=== PATIENT | male | born 1965 | race Caucasian/White ===

== ENCOUNTER → 2017-10-12 14:46 | Outpatient (CLI) | payer OTHER, SELFPAY | PROVIDERS: Visit Provider Psychiatry & Neurology Neurology | DX: Z00.00 Encounter for general adult medical examination without abnormal findings (principal) ==

== ENCOUNTER → 2019-08-31 10:12 | Outpatient (CLI) | payer OTHER, SELFPAY | PROVIDERS: Referring Provider Family Medicine; Visit Provider Family Medicine | DX: Z20.828 Contact with and (suspected) exposure to other viral communicable diseases (principal) | CPT/HCPCS: 87635; G2023; U0004 ==

== ENCOUNTER 2019-12-11 08:48 | Emergency (ER) | payer OTHER, SELFPAY ==
[2019-12-11 08:49] VITALS: BP 132/65; PULSE 66; RESP 15; TEMP 36.2; BMI 27.3
[2019-12-11 08:59] VITALS: O2SAT 97
--- NOTE | 2019-12-11 09:04 | RAD_ITS ---
STUDY: X-RAY - RIGHT HAND, ATTENTION FOURTH FINGER REASON FOR EXAM: Male, 54 years old. Laceration to fourth digit. TECHNIQUE: 3 view(s) of the finger were obtained. COMPARISON: None. FINDINGS: Normal metacarpal head. Normal metacarpophalangeal joint. Normal proximal phalanx. Normal middle phalanx. Normal distal phalanx. Normal proximal interphalangeal joint. Normal distal interphalangeal joint. Soft tissue swelling over the PIP joint. RAD/Finger(s) Min 2 Views IMPRESSION: No demonstrated fracture or suspicious osseous lesion Soft tissue swelling over the PIP joint Electronically Signed: Alfredo Mcneil MD at 9:31 EDT , Service support ,
--- NOTE | 2019-12-11 09:07 | ED.DCSUM_ITS ---
- ER Visit Summary Date of Service: 12/11/19 Chief Complaint: Right ring finger injury History of Present Illness: The patient is a 54 M who presents with an injury to his right ring finger that occurred yesterday. Patient was using a ratchet straps and was trying to release one when it came back and hit him on his right ring finger. Patient cleaned the wound. Patient states that he took ibuprofen last night and his pain improved. Patient states his pain is worse with movement. Patient describes his pain is dull and aching. Patient denies any fevers or chills. Patient denies any paresthesias or weakness. Patient is unsure of his last tetanus. Physical Examination: Vital signs are stable. Patient is afebrile. Patient is in no acute distress. Musculoskeletal exam reveals tenderness over the PIP joint of the right ring finger. There is a 2 cm laceration on the dorsal aspect. There is minimal gapping of the wound margins. There is no active bleeding. Range of motion was slightly limited in flexion of the PIP joint secondary to pain. There is no bony crepitance or step-off. There is no deformity noted. Capillary refill is less than 2 seconds in all digits. Sensation was intact light touch in all digits. Test Results: X-rays of the right ring finger were obtained. There is no acute fracture or foreign body noted. There is some soft tissue swelling. This was interpreted by the radiologist and reviewed by myself. Emergency Department Course and Treatment: Patient was given a tetanus booster. The wound was cleaned and dressed. Patient was given a dose of Keflex here. Patient was given a prescription for Keflex. Patient was instructed to keep the wound clean and dry. Patient was instructed to follow-up with his primary care physician in 5 to 7 days for wound recheck. Patient understood and was agreeable with the plan. All questions were answered. Disposition: Discharge home Impression: Right ring finger laceration This note was generated with [employer] dictation software. It may contain incorrect words, spelling, and punctuation that were not noted in review of the chart prior to signing ED Disposition - Plan for ED Patient: Disposition: Home or Assisted Living Diagnosis: Laceration of right ring finger w/o foreign body w/o damage to nail Instructions: ED Laceration Old Not Sutr Prescriptions: Cephalexin [Keflex] 500 mg PO Q6 #40 cap Prescription Printed Referrals: Care Physician,No Primary [NON-STAFF] - 5-7 Days
[2019-12-11] MEDS: Diphth,Pertuss(Acell),Tet Vac 0.5 ML Vial IM (10:06)
[2019-12-11] MEDS: BACITRACIN 15 GM Tube 1 APPLIC TOPICAL (10:06)
== END 2019-12-11 10:08 | disposition home or self-care (01) ==
PROVIDERS: Emergency Provider Emergency Medicine; PCP Family Medicine
DX: S61.214A Laceration without foreign body of right ring finger without damage to nail, initial encounter (principal); W22.8XXA Striking against or struck by other objects, initial encounter; Y93.89 Activity, other specified; Y92.9 Unspecified place or not applicable
CPT/HCPCS: 73140; 90471; 94760; 99283

== ENCOUNTER → 2020-01-20 | Outpatient (CLI) | payer OTHER, SELFPAY | END | disposition home or self-care (01) | LOC: LABSPEC 01-24 14:35 | PROVIDERS: PCP Family Medicine; Referring Provider Family Medicine; Visit Provider Family Medicine | DX: U07.1 COVID-19 (principal) | CPT/HCPCS: 87635; C9803; U0003 ==

== ENCOUNTER 2020-04-27 08:29 | Day surgery (SDC) | payer SELFPAY, OTHER ==
[2020-04-10 08:07] VITALS: BMI 27.6
[2020-04-27] VITALS (8 sets, daily range): BP systolic 83–106; BP diastolic 47–76; PULSE 54–64; RESP 16–18; TEMP 36.2–36.7; O2SAT 98–100; BMI 26.6
--- NOTE | 2020-04-27 06:56 | HP_ITS ---
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 Zay Jackman MD) Smoking Status: Never smoker HPI HPI HPI: DEVAN SLADE, is a 54 M who presents to the office today for HPI HPI Surgical H&P: Yes HPI: DEVAN SLADE, is a 54 M who presents to the office today for colonoscopy. The patient reports for the past several months he is seen some dark blood in his stool. He also reports that he has been having lower abdominal pain and cramping especially after eating. He denies any upper abdominal pain but he does have gastric reflux. Patient is never had a colonoscopy. He has no family history of colon cancer. ROS General General: Yes weight change and fatigue; no appetite, colon cancer, breast cancer or weakness HEENT HEENT: No difficulty swallowing, eye injury, eye surgery, swollen glands or hoarseness Endo Endocrine: No thyroid disease, diabetes mellitus, thyroid cancer, Hair loss, heat intolerance or cold intolerance Skin Skin: No rash or changing moles Breast Breast: No left breast lump, right breast lump, nipple discharge, breast pain, abnormal mammogram, abnormal US or breast enlargement Musc Musculoskeletal: No back problems, arthritis, rheumatoid arthritis, gout or joint pain Cardio Cardiovascular: No murmur, pacemaker, heart disease, atrial fibrillation, high blood pressure, heart attack, heart stent, palpitations, shortness of breat with exertion or chest pain Psych Psychiatric: No depression, anxiety or hearing voices Resp Respiratory: No shortness of breath, Yes sleep apnea, No cough, No COPD, No asthma, No emphysema, No wheezing Gastro Gastrointestinal: Yes abdominal pain, No nausea or vomiting, No diarrhea, Yes constipation, No blood in stool, Yes acid reflux, No hemorrhoids, No ulcers, No gallbladder problem, No black,tarry stools Additional Details: Possibility of noting a small amount of blood in stool periodically but not entirely sure Lalo Hematologic: No blood thinners, No blood disorders, No bleeding, No anemia, No blood clots Neuro Neurologic: No system reviewed and no additional complaints, except as docu, No as per HPI, No abnormal walking, No abnormal hearing, No abnormal movements, No abnormal speech, No behavioral changes, No burning sensations, No confusion, No seizure-like activity, No unsteadiness, No dizziness, No localized weakness, No frequent falls, No headache(s), No lack of coordination, No loss of vision, No memory loss, No numbness, No other visual disturbances, No radiating pain, No restless legs, No sensory deficit, No fainting, No tingling, No tremor(s), No weakness, No other Exam Const General: cooperative Orientation: alert, oriented x3 Chest Breast Palpation: No nipple discharge Resp Effort & Inspection: normal respiratory effort Auscultation: clear to auscultation bilaterally Cardio Rate: regular rate Rhythm: regular rhythm Heart Sounds: no murmurs GI Inspection: non-distended Palpation: soft, nontender Assessment & Plan Problems 1. Lower abdominal pain R10.30 2. Blood in stool K92.1 Plan The patient has blood in the stool and lower abdominal pain. I recommended colonoscopy. Patient also has history of GERD but no upper abdominal pain. I did start him on a PPI. I explained endoscopy in detail to the patient. I explained the risks including but not limited to stroke or heart attack with anesthesia, perforation of the GI tract, bleeding, infection. I explained that any of these could necessitate further emergency surgery. The patient understands and all questions were answered sufficiently. The patient wishes to proceed with procedure. The patient had Covid 2 months ago. Zay Jackman MD Pager: [facility] [address] [place] [address], [address] [place] [address] Office: Orders Orders: Colonoscopy Today K92.1, R10.30 Medications New: omeprazole 40 mg PO DAILY 60 caps 0RF Coding Level of Care Code Off vis,new,level 3 Diagnoses Lower abdominal pain R10.30 Blood in stool K92.1 I have re-examined the patient. There are no clinical changes since date of exam.
[2020-04-27] MEDS: Lactated Ringers 1,000 ML 100 ML IV ×2 (09:35→10:10)
--- NOTE | 2020-04-27 10:31 | OP.EGD_ITS ---
Patient Name: Garland Cain Procedure Date: 04/27/2020 9:47 AM Date of : 1965 Age: 54 Procedure: Upper GI endoscopy Indications: Recent gastrointestinal bleeding Providers: Zay Jackman MD Referring MD: Herson Whyte Medicines: Monitored Anesthesia Care Patient Profile: This is a 54 year old male. Refer to note in patient chart for documentation of history and physical. Complications: No immediate complications. Procedure: Pre-Anesthesia Assessment: - Prior to the procedure, a History and Physical was performed, and patient medications and allergies were reviewed. The patient's tolerance of previous anesthesia was also reviewed. The risks and benefits of the procedure and the sedation options and risks were discussed with the patient. All questions were answered, and informed consent was obtained. Prior Anticoagulants: The patient has taken no previous anticoagulant or antiplatelet agents. After reviewing the risks and benefits, the patient was deemed in satisfactory condition to undergo the procedure. After obtaining informed consent, the endoscope was passed under direct vision. Throughout the procedure, the patient's blood pressure, pulse, and oxygen saturations were monitored continuously. The gastroscope was introduced through the mouth, and advanced to the second part of duodenum. The upper GI endoscopy was accomplished without difficulty. The patient tolerated the procedure well. Scope In: 9:57:27 AM Scope Out: 9:59:48 AM Total Procedure Duration Time 0 hours 2 minutes 21 seconds Findings: A medium-sized hiatal hernia was present. The esophagus was normal. The examined duodenum was normal. Impression: - Medium-sized hiatal hernia. - Normal esophagus. - Normal examined duodenum. - No specimens collected. Recommendation: - Discharge patient to home. - Resume previous diet. - Continue present medications. Procedure Code(s): --- Professional --- 24888, Esophagogastroduodenoscopy, flexible, transoral; diagnostic, including collection of specimen(s) by brushing or washing, when performed (separate procedure) Diagnosis Code(s): --- Professional --- K44.9, Diaphragmatic hernia without obstruction or gangrene K92.2, Gastrointestinal hemorrhage, unspecified CPT copyright 2017 [employer]. All rights reserved. The codes documented in this report are preliminary and upon histopath tech review may be revised to meet current compliance requirements. Zay Jackman MD 04/27/2020 10:30:55 AM This report has been signed electronically. Number of Addenda: 0 Note Initiated On: 04/27/2020 9:47 AM
--- NOTE | 2020-04-27 10:31 | OP.CCLET_ITS ---
04/27/2020 Hesron Whyte [address] [place] [address] Re : Upper GI endoscopy procedure for Garland Cain Dear Dr. Whyte This procedure was performed on Monday, April 27, 2020. My impressions and recommendations are as follows: Impressions : - Medium-sized hiatal hernia. - Normal esophagus. - Normal examined duodenum. - No specimens collected. Recommendations : - Discharge patient to home. - Resume previous diet. - Continue present medications. My findings are described in the full procedure note, which is enclosed. If I can be of further assistance, please feel free to contact me at Doctor phone number(s): , Work: . Sincerely, Zay Jackman MD 04/27/2020 10:30:55 AM This report has been signed electronically.
--- NOTE | 2020-04-27 10:33 | OP.COLON_ITS ---
Patient Name: Garland Cain Procedure Date: 04/27/2020 10:00 AM Date of : 1965 Age: 54 Procedure: Colonoscopy Indications: Gastrointestinal bleeding Providers: Zay Jcakman MD Referring MD: Herson Whyte Medicines: Monitored Anesthesia Care Patient Profile: This is a 54 year old male. Refer to note in patient chart for documentation of history and physical. Last Colonoscopy: none. The patient's first colonoscopy is today. Complications: No immediate complications. Procedure: Pre-Anesthesia Assessment: - Prior to the procedure, a History and Physical was performed, and patient medications and allergies were reviewed. The patient's tolerance of previous anesthesia was also reviewed. The risks and benefits of the procedure and the sedation options and risks were discussed with the patient. All questions were answered, and informed consent was obtained. Prior Anticoagulants: The patient has taken no previous anticoagulant or antiplatelet agents. After reviewing the risks and benefits, the patient was deemed in satisfactory condition to undergo the procedure. After I obtained informed consent, the scope was passed under direct vision. Throughout the procedure, the patient's blood pressure, pulse, and oxygen saturations were monitored continuously. The colonoscope was introduced through the anus and advanced to the cecum, identified by appendiceal orifice and ileocecal valve. The colonoscopy was performed without difficulty. The patient tolerated the procedure well. The quality of the bowel preparation was good. Scope In: 10:02:12 AM Scope Withdrawal Time 0 hours 6 minutes 25 seconds Scope Out: 10:14:18 AM Total Procedure Duration Time 0 hours 12 minutes 6 seconds Findings: Internal hemorrhoids were found during retroflexion. The hemorrhoids were small. The exam was otherwise without abnormality on direct and retroflexion views. Impression: - Internal hemorrhoids. - The examination was otherwise normal on direct and retroflexion views. - No specimens collected. Recommendation: - Discharge patient to home. - Resume previous diet. - Continue present medications. - Repeat colonoscopy in 10 years for screening purposes. Procedure Code(s): --- Professional --- 08939, Colonoscopy, flexible; diagnostic, including collection of specimen(s) by brushing or washing, when performed (separate procedure) Diagnosis Code(s): --- Professional --- K64.8, Other hemorrhoids K92.2, Gastrointestinal hemorrhage, unspecified CPT copyright 2017 [employer]. All rights reserved. The codes documented in this report are preliminary and upon ammunition specialist review may be revised to meet current compliance requirements. Zay Jackman MD 04/27/2020 10:32:44 AM This report has been signed electronically. Number of Addenda: 0 Note Initiated On: 04/27/2020 10:00 AM
--- NOTE | 2020-04-27 10:33 | OP.CCLET_ITS ---
04/27/2020 Herson Whyte [address] [place] [address] Re : Colonoscopy procedure for Garland Cain Dear Dr. Whyte This procedure was performed on Monday, April 27, 2020. My impressions and recommendations are as follows: Impressions : - Internal hemorrhoids. - The examination was otherwise normal on direct and retroflexion views. - No specimens collected. Recommendations : - Discharge patient to home. - Resume previous diet. - Continue present medications. - Repeat colonoscopy in 10 years for screening purposes. My findings are described in the full procedure note, which is enclosed. If I can be of further assistance, please feel free to contact me at Doctor phone number(s): , Work: . Sincerely, Zay Jackman MD 04/27/2020 10:32:44 AM This report has been signed electronically.
== END 2020-04-27 11:35 | disposition home or self-care (01) ==
LOC: EN 08:32 → AC 08:33
PROVIDERS: PCP Family Medicine; Referring Provider Family Medicine; Visit Provider Surgery
PROC: 0DJD8ZZ Inspection of Lower Intestinal Tract, Via Natural or Artificial Opening Endoscopic (ICD-10-PCS; CPT 45378; principal; 2020-04-27 09:55)
DX: K44.9 Diaphragmatic hernia without obstruction or gangrene (principal); K64.8 Other hemorrhoids; K92.1 Melena; K21.9 Gastro-esophageal reflux disease without esophagitis; E78.5 Hyperlipidemia, unspecified; G47.30 Sleep apnea, unspecified; Z20.822 Contact with and (suspected) exposure to COVID-19; Z79.899 Other long term (current) drug therapy; Z87.891 Personal history of nicotine dependence
CPT/HCPCS: 43235; 45378; 87426; C9803; J7120; J2405

== ENCOUNTER 2021-07-02 07:49 | Outpatient (CLI) | payer OTHER, SELFPAY ==
[2021-07-02 08:36] LABS: Absolute Lymphocyte Count 1.49 X10^3/uL (0.83-4.51); Absolute Neutrophil Count 3.7 X10^3/uL (2.0-7.7); Basophil# 0.03 X10^3/uL; Basophil% 0.5 % (0-1); Eosinophil# 0.15 X10^3/uL; Eosinophils% 2.6 % (0-5); Hemoglobin 16.1 g/dL (13.0-16.5); Lymphocyte # 1.49 X10^3/ul (0.83-4.51); Lymphocyte % 25.5 % (19-41); Mean Corp Hgb Conc 34.3 g/dL (32-36); Mean Corpuscular Hgb 29.1 pg (27.0-32.0); Mean Corpuscular Volume 84.8 fL (80-94); Mean Platelet Vol. 9.9 fl (6.2-12.0); Monocyte# 0.47 X10^3/uL; NRBC Flagged by Analyzer 0 % (0-5); Neutrophil % 63.2 % (47-70); Platelet Count 205 K/mm3 (150-450); RBC Distribution Width CV 12.7 % (11.6-14.6); RBC Distribution Width SD 39.7 fl (35.1-43.9); Red Blood Count 5.54 M/mm3 (4.6-6.2); White Blood Count 5.9 K/mm3 (4.4-11.0)
[2021-07-02 09:17] LABS: AST(SGOT) 24 U/L (15-37); Alanine Aminotransfer ALT/SGPT 45 U/L (16-61); Albumin, Serum 3.7 g/dL (3.2-5.0); Alkaline Phosphatase 55 U/L (45-117); Anion Gap 3 (5-15); BUN 19 mg/dL (7-18); BUN/Creat Ratio 16.4 RATIO (10-20); Bilirubin, Direct 0.11 mg/dL (0.00-0.30); Calcium,Total 8.9 mg/dL (8.5-10.1); Chloride 106 mmol/L (98-107); Cholesterol 224 mg/dL (200); Creatinine, Serum 1.16 mg/dL (0.70-1.30); EST Glomerular Filtration Rate 70 mL/min (>60); Est Glom Filt Rate - Afr Amer 84 mL/min (>60); Globulin 3.7 g/dL (2.2-4.2); Glucose 102 mg/dL (74-106); High Density Lipoprotein 42 mg/dL; Potassium 4.4 mmol/L (3.5-5.1); Protein, Total 7.4 g/dL (6.4-8.2); Sodium Level 137 mmol/L (136-145); Thyroid Stim Hormone (TSH) 1.79 uIU/mL (0.358-3.74); Triglycerides 129 mg/dL; Very Low Density Lipoprotein 26 mg/dL (5-40)
== END 2021-07-02 23:59 | disposition home or self-care (01) ==
LOC: LAB 07:52
PROVIDERS: PCP Family Medicine; Referring Provider Internal Medicine Cardiovascular Disease; Visit Provider Internal Medicine Cardiovascular Disease
DX: R07.89 Other chest pain (principal); R06.02 Shortness of breath; R53.83 Other fatigue; E78.5 Hyperlipidemia, unspecified; G47.33 Obstructive sleep apnea (adult) (pediatric); Z99.89 Dependence on other enabling machines and devices
CPT/HCPCS: 36415; 80048; 80061; 80076; 84443; 85025

== ENCOUNTER → 2021-07-25 | Outpatient (CLI) | payer SELFPAY, OTHER ==
--- NOTE | 2021-07-25 06:03 | ECHOD_ITS ---
Reason For Study: SOB Procedure This was a 2D Doppler, Color Flow transthoracic echocardiogram. The exam was of adequate technical quality. Exam performed in department. Left Ventricle Normal LV size. Left ventricular systolic function is normal. The estimated ejection fraction is 60 %. No evidence for diastolic dysfunction. No regional wall motion abnormalities noted. Right Ventricle Normal RV size. A moderator band is seen in the right ventricle. Normal systolic function. Atria Normal left atrium. Normal right atrium. No doppler evidence for ASD. Mitral Valve There is no mitral annular calcification. Normal mitral valve. Trivial mitral valve insufficiency. Tricuspid Valve Normal tricuspid valve. Trivial tricuspid valve insufficiency. Unable to estimate RV systolic pressure due to insufficient tricuspid regurgitant envelope. Aortic Valve Trisinus/trileaflet aortic valve. Normal aortic valve. Pulmonic Valve The pulmonic valve is not well visualized. Trivial pulmonic valve insufficiency. Great Vessels Normal sized aortic root. Pericardium/Pleural No pericardial effusion. MMode/2D Measurements & Calculations LVIDd: 4.2 cm IVSd: 1.2 cm Ao root diam: 3.6 cm LVIDs: 2.5 cm LVPWd: 1.0 cm RVDd: 3.5 cm FS: 40.1 % LAV(MOD-bp): 39.3 ml LVAd ap4: 27.9 cm2 LVAd ap2: 29.0 cm2 LAV(MOD-bp) Indexed: 19.7 ml/m2 LVLd ap4: 9.3 cm LVLd ap2: 9.4 cm LAV(MOD-sp2): 42.4 ml EDV(MOD-sp4): 69.5 ml EDV(MOD-sp2): 77.1 ml LAV(MOD-sp4): 32.4 ml EDV(sp4-el): 70.9 ml EDV(sp2-el): 76.2 ml LVAs ap4: 15.5 cm2 LVAs ap2: 15.4 cm2 LVLs ap4: 7.8 cm LVLs ap2: 8.0 cm ESV(MOD-sp4): 28.0 ml ESV(MOD-sp2): 26.7 ml ESV(sp4-el): 26.3 ml ESV(sp2-el): 25.2 ml EF(MOD-sp4): 59.7 % EF(MOD-sp2): 65.4 % EF(sp4-el): 63.0 % SV(MOD-sp4): 41.5 ml SV(MOD-sp2): 50.5 ml SV(sp4-el): 44.7 ml LA dimension(2D): 3.8 cm LA A4 area: 14.8 cm2 RA A4 area: 14.1 cm2 Doppler Measurements & Calculations MV E max juan: 52.4 cm/sec Lat Peak E' Juan: 9.6 cm/sec Med Peak E' Juan: 7.4 cm/sec MV A max juan: 60.4 cm/sec E/E' lat: 5.4 E/E' med: 7.0 MV E/A: 0.87 Ao V2 max: 116.8 cm/sec LV V1 max: 96.6 cm/sec PA V2 max: 93.0 cm/sec Ao max P.5 mmHg LV V1 max P.7 mmHg ECHO/Echo Complete Interpretation Summary Left ventricular systolic function is normal. The estimated ejection fraction is 60 %. A moderator band is seen in the right ventricle. Trivial mitral valve insufficiency. Trivial tricuspid valve insufficiency. Trivial pulmonic valve insufficiency. Unable to estimate RV systolic pressure due to insufficient tricuspid regurgita nt envelope. No evidence for diastolic dysfunction. Ordering Physician: Ash Coronel Referring Physician: MD Pato Herson Performed By: Sherie Kirkland, LUDY
--- NOTE | 2021-07-25 10:03 | STRESSREP_ITS ---
Stress Test Report Date: 07-25-2021 Procedure: Exercise tolerance test/imaging study Indications: Chest pain; shortness of breath/dyspnea on exertion Consent: Per the patient Procedure: The patient exercised on a Deshaun protocol for 9 minutes and 30 seconds completing Stage III and 30 seconds of Stage IV achieving a peak heart rate of 164 bpm (98% predicted maximal heart rate) with a peak blood pressure 140/74 mmHg and a peak MET capacity of 11 METs. The baseline ECG demonstrated sinus bradycardia. The peak exercise ECG demonstrated no obvious ECG changes. There was an isolated PAC during recovery. The functional capacity was considered good. There was no complaint of chest discomfort during exercise or recovery. The examination was discontinued secondary to dyspnea. Impression: 1. Technically adequate (percent predicted maximal heart rate greater than 85%) exercise tolerance test 2. Peak exercise ECG with no obvious ECG change 3. There was an isolated PVC during recovery 4. Nuclear images pending Myocardial perfusion imaging study: Technique: The patient was injected with 11.8 mCi of technetium 99m Cardiolite and subsequently rest SPECT Cardiolite nuclear imaging was obtained in the horizontal long, vertical long, and short axis views. The patient exercised on a Deshaun protocol for 9 minutes and 30 seconds completing Stage III and 30 seconds of Stage IV achieving a peak heart rate of 164 bpm (98% predicted maximal heart rate) with a peak blood pressure 140/74 mmHg and a peak MET capacity of 11 METs. The patient was injected with 33.0 mCi of technetium 99m Cardiolite and subsequently stress SPECT Cardiolite nuclear imaging was obtained in the horizontal long, vertical long, and short axis views. A gated Cardiolite study at peak stress was obtained. Interpretation: Rest and stress SPECT Cardiolite nuclear imaging status post realignment, normalization, and attenuation correction, demonstrates the appearance on the preattenuation correction images of diminished myocardial perfusion/tracer uptake in portions of the basal inferior segments without significant change between rest and stress and status post stress small area of diminished myocardial perfusion/tracer uptake in the distal inferior/inferoapical segments, however, on the post attenuation correction images there appears to be relative uniform tracer uptake and myocardial perfusion appearing within normal limits at rest and stress. There is end systolic thickening and brightening. The gated Cardiolite study demonstrates myocardial thickening and inward wall motion. The reported LVEF is 74%. Impression: 1. Rest and stress SPECT Cardiolite nuclear imaging demonstrate demonstrated discrepancy between the preattenuation correction images which are concerning for an area of stress-induced myocardial ischemia in the distal inferior/inferoapical segments and the post attenuation correction images which appear to demonstrate relative uniform tracer uptake and myocardial perfusion appearing within normal limits. 2. The gated Cardiolite study reports an LVEF of 74%. Comment: Clinical correlation recommended. This note was generated with [employer] software. It may contain incorrect words, spelling, and punctuation that were not noted in checking the note before signing.
== END | disposition home or self-care (01) ==
PROVIDERS: PCP Family Medicine; Referring Provider Internal Medicine Cardiovascular Disease; Visit Provider Internal Medicine Cardiovascular Disease
DX: R07.89 Other chest pain (principal); R06.02 Shortness of breath; R53.83 Other fatigue; E78.5 Hyperlipidemia, unspecified; G47.33 Obstructive sleep apnea (adult) (pediatric); Z99.89 Dependence on other enabling machines and devices
CPT/HCPCS: 78452; 93017; 93306; A9500; A4216

== ENCOUNTER → 2021-08-06 | Outpatient (CLI) | payer OTHER, SELFPAY ==
[2021-08-06 15:57] LABS: Hematocrit 47.4 % (40-54); Hemoglobin 15.6 g/dL (13.0-16.5); Mean Corp Hgb Conc 32.9 g/dL (32-36); Mean Corpuscular Hgb 28.5 pg (27.0-32.0); Mean Corpuscular Volume 86.7 fL (80-94); Mean Platelet Vol. 10.3 fl (6.2-12.0); Platelet Count 227 K/mm3 (150-450); RBC Distribution Width SD 40.4 fl (35.1-43.9); Red Blood Count 5.47 M/mm3 (4.6-6.2); White Blood Count 6.4 K/mm3 (4.4-11.0)
[2021-08-06 16:08] LABS: Partial Thromboplast Time 29.3 Seconds (24.1-36.2)
[2021-08-06 16:22] LABS: Anion Gap 5 (5-15); BUN 22 mg/dL (7-18); BUN/Creat Ratio 19.6 RATIO (10-20); Calcium,Total 8.7 mg/dL (8.5-10.1); Chloride 105 mmol/L (98-107); Creatinine, Serum 1.12 mg/dL (0.70-1.30); EST Glomerular Filtration Rate 73 mL/min (>60); Est Glom Filt Rate - Afr Amer 88 mL/min (>60); Glucose 70 mg/dL (74-106); Sodium Level 139 mmol/L (136-145)
== END | disposition home or self-care (01) ==
LOC: LAB 15:05
PROVIDERS: PCP Family Medicine; Referring Provider Internal Medicine Cardiovascular Disease; Visit Provider Internal Medicine Cardiovascular Disease
DX: E78.5 Hyperlipidemia, unspecified (principal); R06.02 Shortness of breath; R07.89 Other chest pain; G47.33 Obstructive sleep apnea (adult) (pediatric); R53.83 Other fatigue; R94.39 Abnormal result of other cardiovascular function study; Z99.89 Dependence on other enabling machines and devices
CPT/HCPCS: 36415; 80048; 85027; 85610; 85730

== ENCOUNTER 2021-08-13 08:14 | Day surgery (SDC) | payer SELFPAY, OTHER ==
[2021-08-12 07:56] VITALS: BMI 27.2
--- NOTE | 2021-08-12 15:29 | HP.PCM_ITS ---
History and Physical Date of Admission: 08/13/21 [facility] [address] [place] [address] [id number] OFFICE VISITDate of Service: 08/06/21 MR#:[id number]: DEVAN SLADE WRep #:[id number] Provider: NANDO Simmons/Sex: 56/M [facility] HPI History of Present Illness Details: This is a 56-year-old gentleman that recently established with us for concerns over chest discomfort, shortness of breath, fatigue. He underwent an echocardiogram which demonstrated an ejection fraction of 60% with no hemodynamically significant valvular disease. He did have a stress test which demonstrated conflicting evidence between preattenuation and post attenuation images raising concern for potential area of stress induced myocardial ischemia in distal/inferoapical segments. Because of this Dr. Coronel would like to pursue a right and left heart catheterization to further evaluate. He does have a history of obstructive sleep apnea and hyperlipidemia. Pt still notes that he is fatigued. He just feels tired. He does sometimes feel winded with activity. He does sometimes just feel that something is there in his chest. He does not have any palpitations. He does not have any lightheadedness/dizziness. He does not have any edema. Intake Vital Signs 08/06/21 14:17 Height 5 ft 10 in Weight: 190 lb BMI 27.2 BP 118/79 Blood Pressure Location Lt brachial Position Sitting Respiration 18 Pulse 69 Pulse Source Monitor Pulse Oximetry (%) 97 Intake Visit Reasons: 6 wk FU Hourly Sign Language Interpreter Required: No Is patient in pain?: No Allergies No Known Allergies Allergy (Verified 08/06/21 14:17) Medications albuterol sulfate 90 mcg/actuation aerosol inhaler 2 puff INHALATION Q4H PRN g 06/06/21 [History Confirmed 08/06/21] pravastatin 20 mg tablet 20 mg PO QHS #30 tab 07/04/21 [Rx Confirmed 08/06/21] cholecalciferol (vitamin D3) 125 mcg (5,000 unit) tablet 125 mcg PO BID tab 08/06/21 [History Confirmed 08/06/21] PFSH Medical History (Updated 07/29/21 @ 09:09 by Maty Holly) Abnormal stress test Chest discomfort Encounter for screening for COVID-19 Fatigue Hyperlipidemia RENE on CPAP Shortness of breath URI (upper respiratory infection) Surgical History History of appendectomy Family History Father Asthma Diabetes CAD (coronary artery disease) Hypertension Grandfather Colon cancer Social History Smoking Status: Former smoker alcohol intake: current details: rare substance use type: does not use caffeine: Yes Type: coffee Number of servings: 2 ROS Const Const: Positive for fatigue (increased past 6 months); Negative for weakness, frequent falls, excessive sweating, weight gain or weight loss Eyes Eyes: Negative for transient loss of vision, blurry vision or change in vision ENT ENT: Negative for dizziness or balance problems Cardio Chest Pain: Yes Character: other (twinge; noted SOB and dizziness) Onset: exercise Location: other (across chest) Duration: brief Relieving: rest Palpitations: Yes (occasional at night; when CPAP mask isnt sealed right) feels like its: irregular Edema: None Muscle aches with walking: None Resp Respiratory: Positive for SOB with activity (occasional), SOB at rest (occasional; bending over), Cough (chronic dry) and other (wears CPAP at night) GI GI: Negative vomiting or vomiting blood/hematemesis : Negative for hematuria Musc Musc: Negative for muscle aches/ myalgia, muscle weakness, joint pain or balance problems Skin Skin: Negative non-healing lesions or rash Neuro Neuro: Positive for lightheadedness (with quick movements/sitting in religion; occasional random) and near syncope; Negative for dizziness, orthostatic symptoms, frequent falls, weakness or blurry vision Lalo Hematologic/Lymphatic: Negative for easy bleeding Endo Endo: Positive for fatigue (increased past 6 months); Negative for excessive sweating Psych Psych: Negative for anxiety or depression Allergy Allergy/Immunology: Negative for hives and Negative for rash Cardiology Exam Const Appearance: cooperative, healthy appearing, comfortable, no acute distress, well developed and well groomed Nutritional Appearance: average body habitus Orientation: alert, awake and oriented x3 Head Head: normal to inspection, normocephalic and atraumatic Ears: hearing grossly normal bilaterally Nose: external nose normal Face and Sinus: face symmetric Eyes Eyelids: eyelids normal Conjunctivae: conjunctivae normal Pupils: PERRL EOM: EOM intact bilaterally Neck Neck: normal visual inspection and full ROM Carotids: normal carotid upstroke Chest Chest inspection: normal inspection of the chest, symmetric chest movement and normal respiratory effort Auscultation: Bilateral: Clear to Auscultation Cardio Palpation: normal PMI Rate: regular rate Rhythm: regular rhythm Heart sounds: S1 normal and S2 normal GI GI: normal to inspection, soft and bowel sounds present Neuro General: patient alert, patient awake, patient oriented x3 and moves all extremities Skin Skin: no rashes or lesions noted Extremities Pulses: Normal: Right Radial Pulse and Left Radial Pulse Lower Extremity Edema: None: Bilateral Psych Psychological: normal affect Supplemental Info Supplemental Information Labs: LDL Cholesterol 156 mg/dL (0-130) H HDL Cholesterol 42 mg/dL (40-) Triglycerides 129 mg/dL (-199) VLDL Cholesterol 26 mg/dL (5-40) Diagnostics: Electrocardiogram Echocardiogram Stress Test NM Stress Test Pulmonary: No Data to Display Assessment and Plan Assessment and Plan (1) Chest discomfort: Status: Acute Plan - Maty COLLIER, PA: With patient's abnormal stress test and continuing symptoms of fatigue, shortness of breath and atypical chest discomfort would like to pursue a right and left heart catheterization, patient is agreeable to proceed with this. Instructions were given to patient. Patient Instructions: Your procedure is schedule for 08/13 with an arrival time of 0830 and a procedure time of 1000. Nothing to eat or drink after midnight With a small sip of water take your morning medications. You will need a commercial collections driver. If you need a stent you will spend the night. Get your labs today (2) Shortness of breath: Status: Acute (3) Fatigue: Status: Acute (4) Hyperlipidemia: Status: Chronic Plan - Maty COLLIER, PA: Pt was started on Statin, will continue to monitor (5) RENE on CPAP: Status: Acute Plan Details Additional Comments: The above was discussed with him and he was agreeable to this approach. Thank you for allowing me to participate in the care of your patient. Please don't hesitate to call if any issues arise. This note was generated using a voice recognition system and there may be incorrect words, spelling or punctuation that were not noted when reviewing the office note prior to saving. Follow Up: 2 Months (MMM) Coding Level of Care Code Off vis,est,level 3 Diagnoses Chest discomfort R07.89 Shortness of breath R06.02 Fatigue R53.83 Hyperlipidemia E78.5 RENE on CPAP G47.33; Z99.89 Coding Level of Care Code Off vis,est,level 3 Diagnoses Chest discomfort R07.89 Shortness of breath R06.02 Fatigue R53.83 Hyperlipidemia E78.5 RENE on CPAP G47.33; Z99.89 08/06/21 1508<Electronically signed by Maty COLLIER>Date __ Maty COLLIER Cosigner Signature:Date (if applicable) CC: Dr. Herson Whyte MD ~ Assessment & Plan Addt'l Comments Addendum: The patient underwent a transthoracic echocardiogram on 07-25-2021. The results are noted below. Interpretation Summary Left ventricular systolic function is normal. The estimated ejection fraction is 60 %. A moderator band is seen in the right ventricle. Trivial mitral valve insufficiency. Trivial tricuspid valve insufficiency. Trivial pulmonic valve insufficiency. Unable to estimate RV systolic pressure due to insufficient tricuspid regurgitant envelope. No evidence for diastolic dysfunction. The patient underwent a stress nuclear imaging study on 07-25-2021. The results are noted below. Stress Test Report Date: 07-25-2021 Procedure: Exercise tolerance test/imaging study Indications: Chest pain; shortness of breath/dyspnea on exertion Consent: Per the patient Procedure: The patient exercised on a Deshaun protocol for 9 minutes and 30 seconds completing Stage III and 30 seconds of Stage IV achieving a peak heart rate of 164 bpm (98% predicted maximal heart rate) with a peak blood pressure 140/74 mmHg and a peak MET capacity of 11 METs. The baseline ECG demonstrated sinus bradycardia. The peak exercise ECG demonstrated no obvious ECG changes. There was an isolated PAC during recovery. The functional capacity was considered good. There was no complaint of chest discomfort during exercise or recovery. The examination was discontinued secondary to dyspnea. Impression: 1. Technically adequate (percent predicted maximal heart rate greater than 85%) exercise tolerance test 2. Peak exercise ECG with no obvious ECG change 3. There was an isolated PVC during recovery 4. Nuclear images pending Myocardial perfusion imaging study: Technique: The patient was injected with 11.8 mCi of technetium 99m Cardiolite and subsequently rest SPECT Cardiolite nuclear imaging was obtained in the horizontal long, vertical long, and short axis views. The patient exercised on a Deshaun protocol for 9 minutes and 30 seconds completing Stage III and 30 seconds of Stage IV achieving a peak heart rate of 164 bpm (98% predicted maximal heart rate) with a peak blood pressure 140/74 mmHg and a peak MET capacity of 11 METs. The patient was injected with 33.0 mCi of technetium 99m Cardiolite and subsequently stress SPECT Cardiolite nuclear imaging was obtained in the horizontal long, vertical long, and short axis views. A gated Cardiolite study at peak stress was obtained. Interpretation: Rest and stress SPECT Cardiolite nuclear imaging status post realignment, normalization, and attenuation correction, demonstrates the appearance on the preattenuation correction images of diminished myocardial perfusion/tracer uptake in portions of the basal inferior segments without significant change between rest and stress and status post stress small area of diminished myocardial perfusion/tracer uptake in the distal inferior/inferoapical segments, however, on the post attenuation correction images there appears to be relative uniform tracer uptake and myocardial perfusion appearing within normal limits at rest and stress. There is end systolic thickening and brightening. The gated Cardiolite study demonstrates myocardial thickening and inward wall motion. The reported LVEF is 74%. Impression: 1. Rest and stress SPECT Cardiolite nuclear imaging demonstrate demonstrated discrepancy between the preattenuation correction images which are concerning for an area of stress-induced myocardial ischemia in the distal inferior/inferoapical segments and the post attenuation correction images which appear to demonstrate relative uniform tracer uptake and myocardial perfusion appearing within normal limits. 2. The gated Cardiolite study reports an LVEF of 74%. Comment: Clinical correlation recommended. Based upon the patient's clinical status and objective findings there is been a recommendation made for further definitive evaluation of the patient's coronary anatomy with diagnostic cardiac catheterization. The procedure and risk were discussed with the patient. He is agreeable to this approach. Addendum: 08/13/2021: I have re-examined the patient. There are no clinical changes since date of exam
[2021-08-13 09:55] LABS: Base Excess -2 mmol/L (-2 to +2); Bicarbonate 23.2 mmol/L (22-26); Blood Gas Specimen Type ART; PO2 79 mmHG (75-100); SO2 96 % (95-99); Total Carbon Dioxide 24 mmol/L; pCO2 37.5 mmHg (35-45)
[2021-08-13 10:00] LABS: Blood Gas Specimen Type VEN; VBG BASE EXCESS -1 mmol/L (-1.0-3.5); VBG BASE EXCESS -2 mmol/L (-1.0-3.5); VBG Bicarbonate 23 mmol/L (22-26); VBG Bicarbonate 24 mmol/L (22-26); VBG PO2 33 mmHg (25-40); VBG PO2 47 mmHg (25-40); VBG SO2 61 % (50-70); VBG SO2 83 % (50-70); VBG TCO2 24 mmol/L (23-33); VBG TCO2 26 mmol/L (23-33); VBG pCO2 37.1 mmHg (41-51); VBG pCO2 43.5 mmHg (41-51); VBG pH 7.36 (7.32-7.42)
[2021-08-13 10:06] LABS: Blood Gas Specimen Type VEN; VBG BASE EXCESS -1 mmol/L (-1.0-3.5); VBG Bicarbonate 24 mmol/L (22-26); VBG PO2 38 mmHg (25-40); VBG SO2 72 % (50-70); VBG TCO2 25 mmol/L (23-33); VBG pCO2 39.3 mmHg (41-51); VBG pH 7.39 (7.32-7.42)
[2021-08-13 10:15] LABS: Blood Gas Specimen Type VEN; VBG BASE EXCESS -1 mmol/L (-1.0-3.5); VBG Bicarbonate 25 mmol/L (22-26); VBG PO2 34 mmHg (25-40); VBG SO2 63 % (50-70); VBG TCO2 26 mmol/L (23-33); VBG pH 7.36 (7.32-7.42)
[2021-08-13 10:25] LABS: Blood Gas Specimen Type VEN; VBG BASE EXCESS -2 mmol/L (-1.0-3.5); VBG Bicarbonate 23 mmol/L (22-26); VBG PO2 39 mmHg (25-40); VBG SO2 72 % (50-70); VBG TCO2 24 mmol/L (23-33); VBG pCO2 38.9 mmHg (41-51); VBG pH 7.38 (7.32-7.42)
[2021-08-13 10:30] LABS: Blood Gas Specimen Type VEN; VBG BASE EXCESS -1 mmol/L (-1.0-3.5); VBG BASE EXCESS -4 mmol/L (-1.0-3.5); VBG Bicarbonate 21 mmol/L (22-26); VBG Bicarbonate 24 mmol/L (22-26); VBG PO2 37 mmHg (25-40); VBG PO2 38 mmHg (25-40); VBG SO2 71 % (50-70); VBG TCO2 23 mmol/L (23-33); VBG TCO2 25 mmol/L (23-33); VBG pCO2 35.9 mmHg (41-51); VBG pCO2 39.2 mmHg (41-51); VBG pH 7.38 (7.32-7.42); VBG pH 7.39 (7.32-7.42)
[2021-08-13 10:35] LABS: Blood Gas Specimen Type VEN; VBG BASE EXCESS -2 mmol/L (-1.0-3.5); VBG Bicarbonate 23 mmol/L (22-26); VBG PO2 44 mmHg (25-40); VBG SO2 79 % (50-70); VBG TCO2 24 mmol/L (23-33); VBG pCO2 37.8 mmHg (41-51); VBG pH 7.39 (7.32-7.42)
--- NOTE | 2021-08-13 10:56 | CL.D_ITS ---
Patient Name: DEVAN SLADE Study Date: 08/13/2021 Performing: Ash Coronel MD Ht: 70.07 inches 178 cm : 1965 Wt: 189.6 lbs 86 kg Age: 56 Gender: male BSA: 2.04 PROCEDURE(S) PERFORMED DC05-(35346)RHC/LHC/COR/LV CLINICAL PROFILE AND INDICATIONS Indications: Suspected CAD Heart Failure: None Stress/Imaging Date: 07/25/2021tress Test with SPECT MPI: Positive Intermediate Risk Angina Classification Anginal Classification w/in 2 Weeks: Anginal Equivalent Dyspnea CAD Presentations: Other: chest discomfort; dyspnea on exertion CONCLUSIONS Right heart pressures - Normal The patient has normal pulmonary hemodynamics. Intracardiac shunting: None (calculated Qp/Qs: 1.28 - considered non hemodynamically significant) Elevated Left Ventricular End Diastolic Pressure (mild) Normal LV size, wall motion,and systolic function LVEF: by LV gram 60 % Normal coronary arteries RECOMMENDATIONS Risk factor modification Medical therapy DESCRIPTION OF PROCEDURE The patient arrived to the procedure lab. The risks and benefits of the procedure as well as a full d escription of our services here and current unavailability of surgical backup were fully explained to the patient and/or their significant other prior to the catheterization. The Timeout was completed, verifying the correct patient and procedure. The patient's procedural site was prepped and draped in the usual fashion. Local anesthetic was given subcutaneously to right groin region with Lidocaine 2%. Using a modified Seldinger technique, arterial access was obtained via the right femoral artery, a 4 Fr sheath was inserted Venous access was obtained via the right femoral vein, a 7Fr sheath was insert ed. A 7Fr thermal dilution catheter was inserted and right heart pressures were recorded, it was then advanced to PA position for cardiac outputs. Thermal dilution cardiac outputs were then recorded. O2 saturations were then obtained. The Thermal dilution catheter was then removed. Left Ventriculography was performed in STEPHENS projection using a 4 Fr. Pigtail catheter. LV to AO pullback pr essures were then recorded. Left Coronary Artery selective angiography was performed in multiple view s using a 4 Fr. JL5 catheter. Right Coronary Artery selective angiography was then performed in multi ple views using a 4 Fr. 3DRC catheter. O2 saturations were then reobtained. The Thermal dilution cath eter was then removed.The arterial sheath was pulled and manual compression applied until hemostasis is achieved.. The venous sheath was then pulled and manual compression applied until hemostasis achie david CORONARY ANGIOGRAPHY DOMINANCE: Co- Dominant LEFT HEART ASSESSMENT Left Ventricular Ejection Fraction: by LV Gram 60 % Normal LV wall motion Elevated Left Ventricular End Diastolic Pressure LVEDP: 14 mmHg RIGHT HEART ASSESSMENT Thermal CO: 5.12 Thermal CI: 2.51 Canelo CO: 5.12 Canelo CI: 2.51 PW: 01/10 6 PA: 24/9 14 RV: 26/0 9 RA: 01/09 4 PVR: 125 SVR: 1359 Mitral Valve Mean Gradient: 0 Right Heart pressures - normal Intracardiac shunting: None (calculated Qp/Qs: 1.28 - considered non hemodynamically significant) LEFT MAIN: Angiographically normal LEFT ANTERIOR DESCENDING ARTERY: Angiographically normal CIRCUMFLEX ARTERY: Angiographically normal RAMUS: Angiographically normal RIGHT CORONARY ARTERY: Angiographically normal AORTIC ROOT: Angiographically normal COMPLICATIONS No Complications PROCEDURE MEDICATIONS Versed 1 mg IV Versed 1 mg IV SUMMARY OF HEMODYNAMIC DATA Time AIR REST ECG 08:37:31 RA 01/09 (4) SV 09:52:03 RV 26/0, 9 09:52:20 PA 28/12 (14) PA 09:53:17 PW 01/10 (6) PV 09:53:41 LV 99/9, 12 09:58:52 PW 03/16 (7) 09:58:52 LV 100/9, 12 09:58:58 PW 03/14 (6) 09:58:58 LV 113/-2, 14 10:00:04 PW 01/11 (6) 10:00:04 LV 116/-1, 20 10:01:05 LV 116/0, 17 10:01:12 LV 111/-1, 18 10:01:27 PW 02/13 (7) 10:01:27 PW 23/21 (16) 10:02:19 LV 114/0, 19 10:02:38 LVp 113/5, 17 10:02:44 AOp 113/68 (89) 10:02:49 PA 29/12 (16) 10:03:06 RV 27/0, 9 10:03:19 RA 12/12 (5) 10:03:30 AO 116/72 (91) SA 10:04:00 RM AIR REST 10:46:30 Valve Area (c P-P/ms Time AIR REST Mitral 0.00 10:01:27 Type SV CO (l/m) CI (l/m/ HR Time AIR REST Thermal 80.00 5.12 2.51 64 08:37:31 Canelo 80.00 5.12 2.51 64 08:37:31 Label % O2 Pres/Loc Time AIR REST SVC 63 10:31:46 IVC 79 10:31:54 PA 72 PA 10:32:02 RA 71 SV 10:32:13 RV 71 10:32:17 AO 96 PV 10:32:28 Signed By Ash Coronel MD On 08/13/2021 10:55:41 Ash Coronel MD
--- NOTE | 2021-08-13 12:54 | CT_ITS ---
STUDY: CTA CHEST REASON FOR EXAM: Male, 56 years old. s/p RHC/LHC with left sided pleuritic chest pain RADIATION DOSAGE (If Supplied By Facility): CTDIvol = ( 17.58 ) mGy, DLP = ( 464.33 ) mGycm TECHNIQUE: The examination was performed with the intravenous administration of IV 100mL Isovue-370. Post-processing of the angiographic images was performed, with multiplanar reformation and 3D reconstruction. Individualized dose optimization techniques were used for this CT. COMPARISON: Comparison is made with prior study dated 04/02/2015. FINDINGS: Normal enhancement of the main pulmonary artery and right and left pulmonary arteries. Normal enhancement of the bilateral peripheral pulmonary arteries. There is no demonstrated pulmonary embolism. Normal thoracic aorta and visualized great vessels. There is no demonstrated aortic dissection. Normal heart and pericardium. Normal mediastinum. Normal hilar regions. Normal visualized trachea and bronchi. The lungs are well expanded. There is evidence of a increased markings at the lung bases suggestive of dependent bibasilar atelectasis. Normal pleura. Normal chest wall structures. Normal osseous structures. Diffuse fatty infiltration of the liver. Small hiatal hernia. CT/CTA Chest W/WO Contrast IMPRESSION: Bibasilar atelectasis. No evidence of pulmonary embolism. Small hiatal hernia and diffuse fatty infiltration of the liver. Electronically Signed: Orestes Tobar MD at 14:38 EDT ,
== END 2021-08-13 15:02 | disposition home or self-care (01) ==
PROVIDERS: PCP Family Medicine; Referring Provider Internal Medicine Cardiovascular Disease; Visit Provider Internal Medicine Cardiovascular Disease
DX: R07.89 Other chest pain (principal); R06.02 Shortness of breath; G47.33 Obstructive sleep apnea (adult) (pediatric); R53.83 Other fatigue; E78.5 Hyperlipidemia, unspecified; Z79.899 Other long term (current) drug therapy; Z87.891 Personal history of nicotine dependence; Z82.49 Family history of ischemic heart disease and other diseases of the circulatory system
CPT/HCPCS: 71275; 82803; 93460; 99152; 99153; J7030; Q9967; C1751; C1769; C1894

== ENCOUNTER → 2021-10-01 | Outpatient (CLI) | payer SELFPAY, OTHER ==
[2021-10-01 10:00] VITALS: PULSE 61; PULSE 62; PULSE 63; PULSE 64; PULSE 73; PULSE 83; O2SAT 90; O2SAT 91; O2SAT 93; O2SAT 94; O2SAT 95; O2SAT 97; O2SAT 98
--- NOTE | 2021-10-02 09:56 | PFT ---
INTRODUCTION: The patient is a 56-year-old male that presents for pulmonary function studies secondary to a diagnosis of shortness of breath. Respiratory therapy reported good patient effort. Bronchodilators were used during testing. INTERPRETATION: Forced expiration spirometry demonstrates no evidence of a large airways obstructive ventilatory defect. There was a significant response to aerosolized bronchodilators. Spirograms are of good quality and plateau normally. Body plethysmography was performed and reveals lung volumes to be within normal limits. Diffusing capacity by single breath CO is also within normal limits. IMPRESSION: Stigmata of small airways disease with significant bronchodilator response.
--- NOTE | 2021-10-02 10:02 | WT_ITS ---
PSN 6 Minute Walk Test 6 Minute Walk Test 6 Minute Walk Test: 6 Minute Walk Test PSN:6-Minute Walk Test Start: 10/01/21 10:28 Freq: Status: Active Protocol: RESP.6MINW Document 10/01/21 10:00 EW (Rec: 10/01/21 10:34 EW [id number]) 6 Minute Walk Test Date Performed 10/01/21 Time Performed 10:00 Height 5 ft 10 in Weight: 182 lb Weight in Pounds 182.[address]: Tavo Carrero Assistive device used: None Pre-test Oxygen Delivery Method Room Air Pulse Ox (%) 98 Pulse Rate (60-100 beats/min) 62 Dyspnea Shauna Scale (0-10) 0 Exertion Shauna Scale (6-20) 6 1st minute Oxygen Delivery Method Room Air Pulse Ox (%) 93 Pulse Rate (60-100 beats/min) 63 2nd minute Oxygen Delivery Method Room Air Pulse Ox (%) 91 Pulse Rate (60-100 beats/min) 64 3rd minute Oxygen Delivery Method Room Air Pulse Ox (%) 91 Pulse Rate (60-100 beats/min) 61 4th minute Oxygen Delivery Method Room Air Pulse Ox (%) 90 Pulse Rate (60-100 beats/min) 73 5th minute Oxygen Delivery Method Room Air Pulse Ox (%) 94 Pulse Rate (60-100 beats/min) 83 6th minute Oxygen Delivery Method Room Air Pulse Ox (%) 95 Pulse Rate (60-100 beats/min) 73 Post-test Oxygen Delivery Method Room Air Pulse Ox (%) 97 Pulse Rate (60-100 beats/min) 64 Dyspnea Shauna Scale (0-10) 2 Exertion Shauna Scale (6-20) 8 Full Laps Walked 23 Partial Lap, Number of Tiles Walked 0 Total Distance Walked (ft) 1357 Interpretation Interpretation: The patient ambulated 1357 feet over the course of 6 minutes beginning on room air without assistive devices. Pretesting oxygen saturation was noted to be 98% on room air. With ambulation, the fuad oxygen saturation was 90%. This repre sents a significant exertional oxygen desaturation. Recommendations Recommendations: There is no indication for the use of supplemental oxygen at this time. However, close interval follow-up is recommended, given the degree of oxygen desaturation noted during this study.
== END | disposition home or self-care (01) ==
LOC: PSN 10:08
PROVIDERS: PCP Family Medicine; Referring Provider Internal Medicine Critical Care Medicine; Visit Provider Internal Medicine Critical Care Medicine
DX: R06.02 Shortness of breath (principal)
CPT/HCPCS: 94060; 94618; 94726; 94729

== ENCOUNTER → 2021-10-08 | Outpatient (CLI) | payer OTHER, SELFPAY ==
[2021-10-08 10:49] LABS: Absolute Neutrophil Count 4.7 X10^3/uL (2.0-7.7); Basophil# 0.02 X10^3/uL; Basophil% 0.3 % (0-1); Eosinophil# 0.06 X10^3/uL; Eosinophils% 0.9 % (0-5); Hematocrit 48.3 % (40-54); Hemoglobin 15.7 g/dL (13.0-16.5); Lymphocyte % 22.4 % (19-41); Mean Corp Hgb Conc 32.5 g/dL (32-36); Mean Corpuscular Hgb 28.3 pg (27.0-32.0); Mean Corpuscular Volume 87.2 fL (80-94); Mean Platelet Vol. 9.6 fl (6.2-12.0); Monocyte# 0.44 X10^3/uL; Monocyte% 6.6 % (0-10); NRBC Flagged by Analyzer 0 % (0-5); Neutrophil # 4.66 X10^3/uL (2.7-7.7); Neutrophil % 69.4 % (47-70); Platelet Count 186 K/mm3 (150-450); RBC Distribution Width CV 13.1 % (11.6-14.6); RBC Distribution Width SD 41.4 fl (35.1-43.9); Red Blood Count 5.54 M/mm3 (4.6-6.2); White Blood Count 6.7 K/mm3 (4.4-11.0)
[2021-10-12 00:07] LABS: Aspirgillus flavus Negative (Neg:<1:1); Aspirgillus fumigatus Negative (Neg:<1:1); Aspirgillus niger Negative (Neg:<1:1)
[2021-10-12 06:09] LABS: Alternaria alternata <0.10 kU/L (Class 0); Bermuda Grass <0.10 kU/L (Class 0); Bluegrass, Kentucky <0.10 kU/L (Class 0); Cat Hair/Dander, Standard <0.10 kU/L (Class 0); D farinae Mite <0.10 kU/L (Class 0); D pteronyssinus <0.10 kU/L (Class 0); Dog Epithelia <0.10 kU/L (Class 0); Elm, American White <0.10 kU/L (Class 0); Oak, White <0.10 kU/L (Class 0); Plantain, English <0.10 kU/L (Class 0); Ragweed, Short/Common <0.10 kU/L (Class 0)
[2021-10-13 14:29] LABS: Mouse Urine <0.10 kU/L (Class 0)
[2021-10-13 14:30] LABS: Immunoglobulin E 34 IU/mL (6-495)
== END | disposition home or self-care (01) ==
LOC: PAVLAB 10:18
PROVIDERS: PCP Family Medicine; Referring Provider Nurse Practitioner Acute Care; Visit Provider Nurse Practitioner Acute Care
DX: R06.02 Shortness of breath (principal)
CPT/HCPCS: 36415; 82785; 85025; 86003; 86606

== ENCOUNTER → 2024-05-12 | Outpatient (CLI) | payer SELFPAY, OTHER ==
--- NOTE | 2024-05-12 13:10 | CT_ITS ---
PROCEDURE: CHEST WITHOUT CONTRAST REASON FOR EXAM: Several month history of not feeling well. TECHNIQUE: Chest CT without contrast. COMPARISON: Comparison is made with prior study dated August 13, 2021. FINDINGS: Hardware: None. Lymph nodes: No mediastinal hilar or axillary lymphadenopathy. Heart and Vasculature: Normal heart size. No pericardial effusion. Thoracic aorta and pulmonary arteries have normal contours; noncontrast technique limits evaluation. Coronary Artery Calcifications: Present Lungs and Airways: Mild linear markings at the lung bases suggestive of scarring. Pleura: No pleural effusion. No pneumothorax. Upper Abdomen: Small hiatal hernia. Bones: Degenerative changes of the thoracic spine. CT/Chest without Contrast IMPRESSION: Mild linear scarring at the lung bases. One or more dose reduction techniques were used (e.g., Automated exposure contr ol, adjustment of the mA and/or kV according to patient size, use of iterative reconstruction technique). Reading Location: [id number]
== END | disposition home or self-care (01) ==
LOC: CT 13:08
PROVIDERS: PCP Family Medicine; Referring Provider Nurse Practitioner Family; Visit Provider Nurse Practitioner Family
DX: R05.9 Cough, unspecified (principal)
CPT/HCPCS: 71250

== ENCOUNTER → 2024-05-24 | Outpatient (CLI) | payer SELFPAY, OTHER ==
[2024-05-24 10:07] VITALS: PULSE 69; PULSE 75; PULSE 88; PULSE 89; PULSE 92; PULSE 96; PULSE 97; O2SAT 93; O2SAT 95; O2SAT 97; O2SAT 98
--- NOTE | 2024-05-30 12:11 | PCM.PSN.6M ---
PSN 6 Minute Walk Test 6 Minute Walk Test 6 Minute Walk Test: 6 Minute Walk Test PSN:6-Minute Walk Test Start: 05/24/24 10:07 Freq: Status: Active Protocol: RESP.6MINW Document 05/24/24 10:07 CHARLENE (Rec: 05/24/24 10:09 [email or web address] [id number]) 6 Minute Walk Test Date Performed 05/24/24 Time Performed 09:45 Height 5 ft 9 in Weight: 191 lb Weight in Pounds 191.[address]: Nahed Browning Assistive device None used: Pre-test Oxygen Delivery Room Air Method Pulse Ox (%) 97 Pulse Rate (60-100 69 beats/min) Dyspnea Shauna Scale ( 0 0-10) Exertion Shauna Scale 6 (6-20) 1st minute Oxygen Delivery Room Air Method Pulse Ox (%) 95 Pulse Rate (60-100 89 beats/min) 2nd minute Oxygen Delivery Room Air Method Pulse Ox (%) 95 Pulse Rate (60-100 97 beats/min) 3rd minute Oxygen Delivery Room Air Method Pulse Ox (%) 93 Pulse Rate (60-100 96 beats/min) 4th minute Oxygen Delivery Room Air Method Pulse Ox (%) 95 Pulse Rate (60-100 92 beats/min) 5th minute Oxygen Delivery Room Air Method Pulse Ox (%) 95 Pulse Rate (60-100 88 beats/min) 6th minute Oxygen Delivery Room Air Method Pulse Ox (%) 95 Pulse Rate (60-100 89 beats/min) Dyspnea Shauna Scale ( 2 0-10) Exertion Shauna Scale 11 (6-20) Post-test Oxygen Delivery Room Air Method Pulse Ox (%) 98 Pulse Rate (60-100 75 beats/min) Full Laps Walked 22 Partial Lap, Number 5 of Tiles Walked Total Distance 1303 Walked (ft) Interpretation Interpretation: The patient ambulated 1303 feet over the course of 6 minutes beginning on room air without assistive devices. Pretesting oxygen saturation was noted to be 97% on room air. With ambulation, the fuad oxygen saturation was 93%. There was no significant exertional oxygen desaturation. Recommendations Recommendations: There is no indication for the use of supplemental oxygen at this time.
== END | disposition home or self-care (01) ==
PROVIDERS: PCP Family Medicine; Referring Provider Nurse Practitioner Family; Visit Provider Nurse Practitioner Family
DX: R05.9 Cough, unspecified (principal)
CPT/HCPCS: 94060; 94618; 94726; 94729

== ENCOUNTER → 2024-06-10 | Outpatient (CLI) | payer OTHER, SELFPAY ==
--- NOTE | 2024-06-10 15:18 | RAD_ITS ---
PROCEDURE: CHEST PA AND LATERAL REASON FOR EXAM: Shortness of breath. TECHNIQUE: Frontal and lateral views of the chest. COMPARISON: PA and lateral chest of 04/05/2024. RAD/Chest PA and Lateral IMPRESSION: Mild thoracic spine degenerative changes are noted. Lungs appear clear throughout. No pleural effusion or pneumothorax is noted. The cardiomediastinal silhouette is remarkable for a somewhat tortuous aorta. No evidence of cardiomegaly. No acute osseous process is seen. Reading Location: [id number]
[2024-06-10 16:14] LABS: Absolute Lymphocyte Count 2.28 X10^3/uL (0.83-4.51); Absolute Neutrophil Count 3.9 X10^3/uL (2.0-7.7); Basophil# 0.03 X10^3/uL; Basophil% 0.4 % (0-1); Eosinophil# 0.08 X10^3/uL; Eosinophils% 1.2 % (0-5); Hemoglobin 15.6 g/dL (13.0-16.5); Lymphocyte # 2.28 X10^3/ul (0.83-4.51); Lymphocyte % 33.1 % (19-41); Mean Corp Hgb Conc 33.9 g/dL (32-36); Mean Corpuscular Hgb 29.1 pg (27.0-32.0); Mean Corpuscular Volume 85.7 fL (80-94); Mean Platelet Vol. 10.4 fl (6.2-12.0); Monocyte# 0.53 X10^3/uL; Monocyte% 7.7 % (0-10); NRBC Flagged by Analyzer 0 % (0-5); Neutrophil # 3.94 X10^3/uL (2.7-7.7); Neutrophil % 57.3 % (47-70); Platelet Count 221 K/mm3 (150-450); RBC Distribution Width CV 13.2 % (11.6-14.6); RBC Distribution Width SD 40.7 fl (35.1-43.9); Red Blood Count 5.37 M/mm3 (4.6-6.2); White Blood Count 6.9 K/mm3 (4.4-11.0)
[2024-06-10 17:14] LABS: Anion Gap 11 (5-15); BUN 18 mg/dL (4-19); BUN/Creat Ratio 16.4 RATIO (10-20); Calcium,Total 9.1 mg/dL (7.6-11.0); Carbon Dioxide 24.8 mmol/L (21.0-32.0); Chloride 103 mmol/L (98-108); Creatinine, Serum 1.12 mg/dL (0.70-1.20); EST Glomerular Filtration Rate 77 (>60); Glucose 83 mg/dL (70-99); Pro- Brain NATRIURETIC PEPTIDE < 36 pg/mL (<=900); Sodium Level 139 mmol/L (133-145)
== END | disposition home or self-care (01) ==
LOC: LAB 15:09
PROVIDERS: PCP Family Medicine; Referring Provider Physician Assistant Medical; Visit Provider Physician Assistant Medical
DX: R06.02 Shortness of breath (principal); R07.89 Other chest pain
CPT/HCPCS: 36415; 71046; 80048; 83880; 85025

== ENCOUNTER 2024-06-23 06:59 | Outpatient (CLI) | payer SELFPAY, OTHER ==
--- NOTE | 2024-06-23 07:02 | CT_ITS ---
PROCEDURE: LIMITED CHEST CT CARDIAC ONLY 06/23/2024 REASON FOR EXAM: CHEST PAIN Coronary artery disease. TECHNIQUE: Chest CT without contrast. Axial imaging was performed. One or more dose reduction techniques were used (e.g., Automated exposure control, adjustment of the mA and/or kV according to patient size, use of iterative reconstruction technique COMPARISON: None. RADIATION DOSE SUMMARY: CTDlvol: 8.67 mGy DLP: 273.3 mGycm FINDINGS: Hardware: None Lymph nodes: No mediastinal lymph nodes are seen. Heart and Vasculature: The heart is not enlarged. Coronary Artery Calcifications: Present Lungs and Airways: Unremarkable Pleura: Unremarkable Upper Abdomen: Unremarkable Bones: Degenerative changes of the thoracic spine. CT/Limited Chest CT Cardiac Only IMPRESSION: Mild coronary artery calcification. Reading Location: [place] [id number]
--- NOTE | 2024-06-23 13:48 | CA.SCORE ---
Calcium Scoring Date of Study:: 06/23/24 Indications Indications: Chest pain Coronary Calcium Scoring: High-resolution Computed Tomographic imaging of the chest was performed on [06/23/2024], with particular attention paid to the coronary arteries. Images from the examination were analyzed for the presence and extent of coronary artery calcification , using coronary calcium quantification software. The patient tolerated the procedure well and there were no complications. The results of the coronary calcification analysis are provided below. Findings Coronary Artery Left Main (LM): 0 Left Anterior Descending (LAD): 38.7 Left Circumflex (LCX): 0 Right Coronary Artery (RCA): 0 Total Agatston Score: 38.7 Percentile Rankin to 50th percentile Calcium Scoring Interpretation: Different methods to categorize the overall amount of coronary plaque. Overall amount CAC SIS Visual of coronary plaque P1 Mild -100 <2 1-2 vessels with mild amount of plaque P2 Moderate 101-300 3-4 1-2 vessels with moderate amount, 3 vessels with mild amount of plaque P3 Severe 301-999 5-7 3 vessels with moderate amount, 1 vessel with severe amount of plaque P4 Extensive >1000 >8 2-3 vessels with severe amount of plaque Calcium Score: Mild: 1-2 vessels w/mild amount of plaque Conclusion: Mild single-vessel plaque disease noted.
== END 2024-06-23 23:59 | disposition home or self-care (01) ==
LOC: CT 07:01
PROVIDERS: PCP Family Medicine; Referring Provider Physician Assistant Medical; Visit Provider Physician Assistant Medical
DX: R07.89 Other chest pain (principal); I25.10 Atherosclerotic heart disease of native coronary artery without angina pectoris
CPT/HCPCS: 75571; 76380

== ENCOUNTER → 2024-06-24 | Outpatient (CLI) | payer OTHER, SELFPAY ==
[2024-06-24 09:48] LABS: ALB/GLOB Ratio 1.4 RATIO (0.9-2.4); AST(SGOT) 27 U/L (<=37); Alanine Aminotransfer ALT/SGPT 40 U/L (<=46); Albumin, Serum 4.1 g/dL (3.5-5.0); Alkaline Phosphatase 54 U/L (40-129); Anion Gap 13 (5-15); BUN 29 mg/dL (4-19); BUN/Creat Ratio 25.8 RATIO (10-20); Calcium,Total 9.4 mg/dL (7.6-11.0); Carbon Dioxide 21.8 mmol/L (21.0-32.0); Chloride 104 mmol/L (98-108); Cholesterol 234 mg/dL (<=200); Creatinine, Serum 1.13 mg/dL (0.70-1.20); EST Glomerular Filtration Rate 76 (>60); Glucose 103 mg/dL (70-99); High Density Lipoprotein 46 mg/dL; Low Density Lipoprotein Calc. 162 mg/dL; Potassium 4.4 mmol/L (3.3-5.1); Protein, Total 7.1 g/dL (5.9-8.4); Sodium Level 140 mmol/L (133-145); Total Bilirubin 0.32 mg/dL (0.00-1.30); Triglycerides 131 mg/dL; Very Low Density Lipoprotein 26 mg/dL (5-40); cholesterol:hdl ratio screen 5.14
== END | disposition home or self-care (01) ==
PROVIDERS: PCP Family Medicine; Referring Provider Physician Assistant Medical; Visit Provider Physician Assistant Medical
DX: R07.89 Other chest pain (principal)
CPT/HCPCS: 36415; 80053; 80061

== ENCOUNTER → 2025-02-16 | Outpatient (CLI) | payer SELFPAY, OTHER | END | disposition home or self-care (01) | PROVIDERS: PCP Family Medicine; Referring Provider Nurse Practitioner Family; Visit Provider Nurse Practitioner Family | DX: J45.30 Mild persistent asthma, uncomplicated (principal) | CPT/HCPCS: 94060; 94726; 94729 ==